=== PATIENT | male | born 1965 | race Caucasian/White ===

== ENCOUNTER → 2021-08-07 | Day surgery (SDC) | payer OTHER ==
[~2021-08-07] MED LIST: GABAPENTIN300 MG PO
== END | disposition home or self-care (01) ==
LOC: OR 06:02
DX: Z12.11 Encounter for screening for malignant neoplasm of colon (principal); D12.2 Benign neoplasm of ascending colon; K57.30 Diverticulosis of large intestine without perforation or abscess without bleeding; Z86.010 Personal history of colon polyps; E11.9 Type 2 diabetes mellitus without complications; Z20.822 Contact with and (suspected) exposure to COVID-19; Z79.899 Other long term (current) drug therapy; Z80.8 Family history of malignant neoplasm of other organs or systems
CPT/HCPCS: J2704; J7120; U0002